=== PATIENT | female | born 1995 | race Caucasian/White ===

== ENCOUNTER 2019-09-01 10:00 | Inpatient (IN) ==
[2019-09-01] MEDS ORDERED: Epidural Premix (fent/bupiv) 110 ML EP SCH (10:30)
[2019-09-01] MEDS ORDERED: Naloxone 0.4 MG/ML INJ IVP PRN (10:39)
[2019-09-01] MEDS ORDERED: Metoclopramide 10 MG/2 ML VIAL IVP PRN (10:39)
[2019-09-01] MEDS ORDERED: Famotidine 20 MG/2 ML VIAL IVP PRN (10:39)
[2019-09-01] MEDS ORDERED: *HR* Nalbuphine 10 MG/ML AMPUL IVP PRN (10:39)
[2019-09-01] MEDS ORDERED: Ondansetron 4 MG/2 ML VIAL IVP PRN (10:39)
[2019-09-01] MEDS ORDERED: miSOPROStoL 25 MCG TABLET PO ONE (10:42)
[2019-09-01] MEDS ORDERED: Ringers Solution, Lactated 1,000 ML IVC SCH (10:45)
[2019-09-01 11:43] LABS: Basophils % 0.4 %; Eosinophils % 0.3 %; Hematocrit 36.9 % (35.3-44.9); Hemoglobin 12.4 g/dL (11.5-15.4); Immature Granulocytes % 0.8 % (0-4); Lymphocytes # 1.6 K/mcL (0.6-4.6); Lymphocytes % 16.8 %; Mean Corpuscular HGB Conc 33.6 g/dL (31.6-35.5); Mean Corpuscular Hemoglobin 28.7 pg (28.0-33.3); Mean Corpuscular Volume 85.4 fL (83.0-100.0); Mean Platelet Volume 10.6 fL (9.4-12.4); Monocytes # 0.9 K/mcL (0.0-1.3); Monocytes % 9.5 %; Neutrophils # 6.7 K/mcL (1.6-8.9); Platelet Count 218 K/mcL (140-400); Red Blood Count 4.32 M/mcL (3.82-4.97); Red Cell Distribution Width 12.8 % (11.5-14.5); Segmented Neutrophils % 72.2 %; White Blood Count 9.2 K/mcL (4.3-11.1)
[2019-09-01 11:54] LABS: Amphetamine Screen,Urine Negative ng/mL (Cutoff=1000); Barbiturate Screen,Urine Negative ng/mL (Cutoff=200); Benzodiazepines Screen,Urine Negative ng/mL (Cutoff=200); Cannabinoid Screen,Urine Negative ng/mL (Cutoff = 50); Cocaine Screen,Urine Negative ng/mL (Cutoff= 300); Opiate Screen,Urine Negative ng/mL (Cutoff=300); Phencyclidine Screen,Urine Negative ng/mL (Cutoff=25)
[2019-09-01] MEDS ORDERED: Oxytocin 20 units/ LR 1000 mL 20 UNIT/1,000 ML BAG IVC SCH (16:15)
[2019-09-02] MEDS ORDERED: Measles/Mumps/Rubella Vacc 0.5 ML VIAL SQ PRN (02:49)
[2019-09-02] MEDS ORDERED: Rho Immune Globulin 1,500 UNIT SYRINGE IM PRN (02:49)
[2019-09-02] MEDS ORDERED: Acetaminophen 325 MG TABLET PO PRN (02:49)
[2019-09-02] MEDS ORDERED: Oxytocin 20 units/ LR 1000 mL 20 UNIT/1,000 ML BAG IVC ONE ×2 (02:49→02:54)
[2019-09-02] MEDS ORDERED: Oxytocin 20 units/ LR 1000 mL 20 UNIT/1,000 ML BAG IVC SCH (02:49)
[2019-09-02] MEDS ORDERED: Ibuprofen 600 MG TABLET PO PRN (04:00)
[2019-09-02 06:19] LABS: Basophils % 0.3 %; Eosinophils % 0.1 %; Immature Granulocytes % 0.8 % (0-4); Mean Corpuscular HGB Conc 33.9 g/dL (31.6-35.5); Mean Corpuscular Hemoglobin 29.2 pg (28.0-33.3); Mean Corpuscular Volume 86.4 fL (83.0-100.0); Mean Platelet Volume 11.1 fL (9.4-12.4); Monocytes # 1.1 K/mcL (0.0-1.3); Monocytes % 7.2 %; Neutrophils # 12.2 K/mcL (1.6-8.9); Platelet Count 190 K/mcL (140-400); Red Blood Count 3.59 M/mcL (3.82-4.97); Red Cell Distribution Width 12.9 % (11.5-14.5); Segmented Neutrophils % 78.6 %
[2019-09-02 06:21] LABS: Basophils # 0.1 K/mcL (0.0-0.2); Hemoglobin 10.5 g/dL (11.5-15.4); White Blood Count 15.5 K/mcL (4.3-11.1)
[2019-09-02] MEDS: Prenatal Vit/FA 1 EACH TABLET PO SCH (07:56)
[2019-09-02] MEDS ORDERED: Lanolin 7 G OINT...G. TP PRN (21:16)
[2019-09-03] MEDS: Prenatal Vit/FA 1 EACH TABLET PO SCH (07:46)
[2019-09-03 07:59] VITALS: BP 92/55
[2019-09-03] MEDS ORDERED: Benzocaine/Menthol 56 GM AEROSOL SPRAY TP PRN (09:13)
== END 2019-09-03 14:55 | disposition home or self-care (01) | DRG 768 ==
LOC: 1NENULAB 10:01 → 1NENUOBS 09-02 04:09
PROVIDERS: ADMIT Obstetrics & Gynecology; ATTEND Obstetrics & Gynecology

== ENCOUNTER → 2022-03-02 20:28 | Observation (INO) ==
[2022-03-02 16:54] LABS: Basophils % 0.3 %; Eosinophils # 0.1 K/mcL (0.0-0.6); Eosinophils % 0.8 %; Hematocrit 37.3 % (35.3-44.9); Hemoglobin 11.9 g/dL (11.5-15.4); Lymphocytes # 1.8 K/mcL (0.6-4.6); Mean Corpuscular HGB Conc 31.9 g/dL (31.6-35.5); Mean Corpuscular Hemoglobin 28.5 pg (28.0-33.3); Mean Corpuscular Volume 89.4 fL (83.0-100.0); Mean Platelet Volume 10.1 fL (9.4-12.4); Monocytes # 0.9 K/mcL (0.0-1.3); Monocytes % 8.5 %; Neutrophils # 7.2 K/mcL (1.6-8.9); Platelet Count 220 K/mcL (140-400); Red Blood Count 4.17 M/mcL (3.82-4.97); Red Cell Distribution Width 13.7 % (11.5-14.5); Segmented Neutrophils % 71.4 %; White Blood Count 10.1 K/mcL (4.3-11.1)
[2022-03-02 17:06] LABS: Creatinine,Urine 21 mg/dL
[2022-03-02 17:13] LABS: Alanine Aminotransferase 8 Units/L (7-52); Aspartate Amino Transferase 12 Units/L (13-39); BUN/Creatinine Ratio 18 (6-26); Blood Urea Nitrogen 9 mg/dL (6-20); Lactate Dehydrogenase 129 Units/L (140-271); Uric Acid 3.8 mg/dL (2.3-7.6); eGFR For African Americans > 60 (> 60); eGFR For Non-African Americans > 60 (> 60)
[~2022-03-02 20:28] MED LIST: Iopamidol - 370 500 ML MLS IVP ONE
== END | disposition home or self-care (01) ==
LOC: 1NENULAB
PROVIDERS: ADMIT Obstetrics & Gynecology; ATTEND Obstetrics & Gynecology

== ENCOUNTER 2022-05-30 12:39 | Inpatient (IN) ==
[2022-05-30] MEDS ORDERED: Metoclopramide 10 MG/2 ML VIAL IVP PRN ×2 (13:04→20:44)
[2022-05-30] MEDS ORDERED: Naloxone 0.4 MG/ML INJ IVP PRN (13:04)
[2022-05-30] MEDS ORDERED: Famotidine 20 MG/2 ML VIAL IVP PRN (13:04)
[2022-05-30] MEDS ORDERED: *HR* Nalbuphine 10 MG/ML AMPUL IV PRN (13:04)
[2022-05-30] MEDS ORDERED: Ringers Solution, Lactated 1,000 ML IVC SCH ×2 (13:15→20:44)
[2022-05-30 13:54] LABS: Amphetamine Screen,Urine Negative ng/mL (Cutoff=1000); Barbiturate Screen,Urine Negative ng/mL (Cutoff=200); Benzodiazepines Screen,Urine Negative ng/mL (Cutoff=200); Cannabinoid Screen,Urine Negative ng/mL (Cutoff = 50); Cocaine Screen,Urine Negative ng/mL (Cutoff= 300); Opiate Screen,Urine Negative ng/mL (Cutoff=300); Phencyclidine Screen,Urine Negative ng/mL (Cutoff=25)
[2022-05-30 13:55] LABS: Basophils % 0.4 %; Eosinophils % 0.3 %; Hemoglobin 13.7 g/dL (11.5-15.4); Lymphocytes # 2.4 K/mcL (0.6-4.6); Lymphocytes % 23.3 %; Mean Corpuscular HGB Conc 32.6 g/dL (31.6-35.5); Mean Corpuscular Hemoglobin 28.7 pg (28.0-33.3); Mean Corpuscular Volume 88.1 fL (83.0-100.0); Mean Platelet Volume 10.5 fL (9.4-12.4); Monocytes # 0.6 K/mcL (0.0-1.3); Monocytes % 6.1 %; Neutrophils # 7.2 K/mcL (1.6-8.9); Platelet Count 207 K/mcL (140-400); Red Blood Count 4.77 M/mcL (3.82-4.97); Red Cell Distribution Width 13.6 % (11.5-14.5); Segmented Neutrophils % 68.9 %; White Blood Count 10.5 K/mcL (4.3-11.1)
[2022-05-30] MEDS ORDERED: CeFAZolin 2,000 MG/120 ML BAG IVPB ONE (14:00)
[2022-05-30] MEDS ORDERED: EPHEDrine sulfate 50 MG/10 ML VIAL IVP ONE (15:48)
[2022-05-30] MEDS ORDERED: Ringers Solution, Lactated 1,000 ML ONE (15:48)
[2022-05-30] MEDS ORDERED: *HR* FentaNYL (PF) 100 MCG/2 ML VIAL ONE (15:48)
[2022-05-30] MEDS ORDERED: Oxytocin 30 UNIT/503 ML BAG IVC ONE ×2 (15:48→19:21)
[2022-05-30] MEDS ORDERED: Ondansetron 4 MG/2 ML VIAL ONE (15:49)
[2022-05-30] MEDS ORDERED: *HR* Morphine Sulfate/PF 10 MG/10 ML AMPUL ONE (17:15)
[2022-05-30] MEDS ORDERED: Promethazine 6.25 MG in Water for inj. (sterile) 20 ML IVPB PRN (17:18)
[2022-05-30] MEDS ORDERED: Ondansetron 4 MG/2 ML VIAL IVP PRN ×2 (17:18→20:44)
[2022-05-30] MEDS ORDERED: *HR* HYDROmorphone PF 0.5 MG/0.5 ML SYRINGE IVP PRN (17:18)
[2022-05-30] MEDS ORDERED: Acetaminophen IV 1,000 MG/100 ML BAG IVPB ONE (17:25)
[2022-05-30] MEDS ORDERED: 0.9 % Sodium Chloride 2,000 ML ONE (18:25)
[2022-05-30] MEDS ORDERED: Oxytocin 30 UNIT/503 ML BAG IVC SCH (20:44)
[2022-05-30] MEDS ORDERED: Rho Immune Globulin 1,500 UNIT SYRINGE IM ONE (20:44)
[2022-05-30] MEDS ORDERED: *HR* OxyCODONE Immed Rel 5 MG TABLET PO PRN (20:44)
[2022-05-30] MEDS ORDERED: Simethicone 80 MG TAB.CHEW PO PRN (20:44)
[2022-05-30] MEDS: Ibuprofen 600 MG TABLET PO SCH (21:37)
[2022-05-30] MEDS: Acetaminophen 325 MG TABLET PO SCH (21:37)
[2022-05-31] MEDS: Ibuprofen 600 MG TABLET PO SCH ×2 (04:43→11:53)
[2022-05-31] MEDS: Acetaminophen 325 MG TABLET PO SCH ×2 (04:44→11:52)
[2022-05-31 05:41] LABS: Basophils % 0.3 %; Eosinophils % 0.1 %; Hematocrit 30.8 % (35.3-44.9); Immature Granulocytes % 0.7 % (0-4); Lymphocytes # 2.8 K/mcL (0.6-4.6); Lymphocytes % 18.5 %; Mean Corpuscular HGB Conc 33.4 g/dL (31.6-35.5); Mean Corpuscular Hemoglobin 29.1 pg (28.0-33.3); Mean Platelet Volume 10.4 fL (9.4-12.4); Monocytes # 1.1 K/mcL (0.0-1.3); Monocytes % 7.2 %; Platelet Count 198 K/mcL (140-400); Red Blood Count 3.54 M/mcL (3.82-4.97); Red Cell Distribution Width 13.6 % (11.5-14.5); Segmented Neutrophils % 73.2 %
[2022-05-31 05:58] LABS: Hemoglobin 10.3 g/dL (11.5-15.4)
[2022-05-31] MEDS ORDERED: Prenatal Vit/FA 1 EACH TABLET PO SCH (09:00)
[2022-05-31] MEDS ORDERED: Aspirin Enteric Coated 81 MG Tablet PO SCH (09:00)
[2022-05-31 15:56] VITALS: BP 133/80; PULSE 87; TEMP 97.7; O2SAT 98
== END 2022-05-31 19:18 | disposition home or self-care (01) | DRG 786 ==
LOC: 1NENULAB 12:39 → 1NENUOBS 20:44
PROVIDERS: ADMIT Obstetrics & Gynecology; ATTEND Obstetrics & Gynecology